=== PATIENT | male | born 1990 | race Caucasian/White ===

== ENCOUNTER 2021-04-27 08:15 | Emergency (ER) | payer OTHER ==
[~2021-04-27 08:15] MED LIST: AMOXICILLIN500 MG PO; NORCO 5-325 TA1 EACH PO
[2021-04-27] MEDS ORDERED: HYDROCODON-ACE1 EAC4 PO (10:00)
== END 2021-04-27 10:09 | disposition home or self-care (01) ==
LOC: ER1 08:15
DX: S86.911A Strain of unspecified muscle(s) and tendon(s) at lower leg level, right leg, initial encounter (principal); F17.200 Nicotine dependence, unspecified, uncomplicated; X50.1XXA Overexertion from prolonged static or awkward postures, initial encounter; Y92.009 Unspecified place in unspecified non-institutional (private) residence as the place of occurrence of the external cause
CPT/HCPCS: 73562; 99283

== ENCOUNTER 2022-01-21 01:45 | Emergency (ER) | payer OTHER ==
[~2022-01-21 01:45] MED LIST changes: +HYDROCODON-ACE1 EAC4 PO
== END 2022-01-21 05:42 | disposition left against medical advice (07) ==
LOC: ER1 01:45
DX: Z53.21 Procedure and treatment not carried out due to patient leaving prior to being seen by health care provider (principal)